=== PATIENT | male | born 1960 | race Caucasian/White ===

== ENCOUNTER → 2025-05-28 17:52 | Outpatient (ROUT) | payer OTHER, SELFPAY | PROVIDERS: Visit Provider Registered Nurse | DX: L03.90 Cellulitis, unspecified (principal); Z79.899 Other long term (current) drug therapy | CPT/HCPCS: 87070; 87075; 87205 ==

== ENCOUNTER → 2025-06-04 14:07 | Outpatient (CLI) | payer OTHER, SELFPAY ==
--- NOTE | 2025-06-04 14:14 | DI.CT.S_ITS ---
PROCEDURE: CT CHEST W CON INDICATIONS: Squamous cell carcinoma TECHNIQUE: After the administration of intravenous contrast, 5 mm thick sections acquired from the pulmonary apices to the posterior costophrenic angles. 1 mm axial lung, 5 mm thick coronal and sagittal reformats and 7 mm axial MIP were acquired. For radiation dose reduction, the following was used: automated exposure control, adjustment of mA and/or kV according to patient size. COMPARISON: None. FINDINGS: Image quality: Diagnostic. Lower Neck: No enlarged lymph nodes. Thyroid: No thyroid nodules which require sonographic follow up, per consensus guidelines. Axillae: No enlarged lymph nodes. Chest Wall: Unremarkable. Bones: Unremarkable. Lungs and Pleura: No pneumothorax or pleural effusions. No consolidation or suspicious nodules. Heart: Heart size is normal. No pericardial effusion. Thoracic Vessels: The aorta and pulmonary arteries demonstrate normal size. Mediastinum and Melody: No enlarged lymph nodes. Esophagus: No wall thickening. Mild hiatal hernia. Upper Abdomen: Visualized upper abdomen solid organs and bowel loops appear normal. IMPRESSION: No evidence of metastatic disease. Dictated by: Lucina Haddad M.D. on 06/05/2025 at 15:33 Approved by: Lucina Haddad M.D. on 06/05/2025 at 15:36
[2025-06-04 14:37] LABS: Estimated Glomerular Filt Rate > 60 mL/min (>60)
--- NOTE | 2025-06-04 14:46 | DI.CT.S_ITS ---
PROCEDURE: CT SOFT TISSUE NECK W CON INDICATIONS: Squamous cell carcinoma TECHNIQUE: After the administration of intravenous contrast, 3.0 mm axial sections acquired from the sella to the aortic arch. Additional oblique axial 3.0 mm sections acquired through the pharynx. 3 mm thick coronal and sagittal reformats were generated. For radiation dose reduction, the following was used: automated exposure control. COMPARISON: [facility], CT, CT CHEST W CON, 06/04/2025, 14:31. FINDINGS: Image quality: Excellent. Lymph nodes: No enlarged lymph nodes seen throughout the neck by size criteria. Largest measures approximately 0.9 cm in short axis in left level 2 a. There appears to be slightly more numerous lymph nodes although subcentimeter in size. Vessels: Visualized vasculature appears patent. Neck spaces: The oropharynx, nasopharynx, and pharynx demonstrate no mucosal lesions. The vocal cords, false vocal cords, pyriform sinuses, epiglottis, vallecula, and tongue base all appear normal. Extramucosal spaces appear unremarkable. Glands: The parotid and submandibular glands appear normal. Thyroid gland is unremarkable. Miscellaneous: Visualized brain and orbits appear normal. Lung apices appear clear. Superficial soft tissues demonstrate soft tissue nodule extending to the skin surface at the right cheek measuring 1.6 x 1.3 cm series 2, image 34. Skin defect is present possibly related to mass invasion versus recent biopsy. There is minimal residual fat plane between the mass in the adjacent rn recovery muscle. Soft tissue nodule within the subcutaneous fat of the lower posterior neck is present measuring 0.5 x 0.8 cm series 2, image 56. Bones: No suspicious bony lesions. Visualized sinuses and mastoids appear unremarkable. IMPRESSION: Soft tissue masses as described above at the left cheek as well as posterior left neck within the subcutaneous fat. Recommend correlation to known areas of squamous cell carcinoma. No adenopathy by size criteria. Lymph nodes are felt to be more numerous than typically observed. As concern warrants, PET scan may be helpful for further evaluation of potential malignant nodes. Dictated by: Lucina Haddad M.D. on 06/05/2025 at 9:10 Approved by: Lucina Haddad M.D. on 06/05/2025 at 9:25
== END ==
PROVIDERS: Radiology Diagnostic Radiology; Referring Provider Registered Nurse; Visit Provider Registered Nurse
DX: C44.329 Squamous cell carcinoma of skin of other parts of face (principal); K44.9 Diaphragmatic hernia without obstruction or gangrene
CPT/HCPCS: 36415; 70491; 71260; 82565; Q9967